=== PATIENT | female | born 1960 | race Caucasian/White ===

== ENCOUNTER 2016-06-11 07:57 | Outpatient (CLI) | payer OTHER | END 2016-06-11 20:15 | disposition home or self-care (01) | LOC: SMA 07:57 | DX: Z12.31 Encounter for screening mammogram for malignant neoplasm of breast (principal) | CPT/HCPCS: 77067; G0202 ==

== ENCOUNTER 2017-06-13 08:00 | Outpatient (CLI) | payer BC | END 2017-06-13 17:49 | disposition home or self-care (01) | LOC: SMA 08:00 | DX: Z12.31 Encounter for screening mammogram for malignant neoplasm of breast (principal) | CPT/HCPCS: 77067 ==

== ENCOUNTER 2018-06-21 08:08 | Outpatient (CLI) | payer BC | END 2018-06-21 20:40 | disposition home or self-care (01) | LOC: SMA 08:08 | PROVIDERS: ATTEND Family Medicine | DX: Z12.31 Encounter for screening mammogram for malignant neoplasm of breast (principal) | CPT/HCPCS: 77067 ==

== ENCOUNTER 2020-06-09 07:59 | Outpatient (CLI) | payer BC | END 2020-06-09 20:42 | disposition home or self-care (01) | LOC: SMA 07:59 | PROVIDERS: ATTEND Family Medicine | DX: Z12.31 Encounter for screening mammogram for malignant neoplasm of breast (principal) | CPT/HCPCS: 77067 ==